=== PATIENT | female | born 1980 | race Caucasian/White ===

== ENCOUNTER 2023-08-01 22:36 | Emergency (ER) | payer MEDICAID, SELFPAY ==
[2023-08-01 22:53] VITALS: BP 93/48; PULSE 85; RESP 12; TEMP 36.9; O2SAT 99
[2023-08-01 23:00] VITALS: BP 92/50; BMI 36.9
--- NOTE | 2023-08-01 23:13 | ED_ITS ---
HPI - Nausea/Vomiting/Diarrhea General Chief complaint: Nausea/Vomiting/Diarrhea Stated complaint: syncope Time Seen by Provider: 08/01/23 22:53 Source: patient Mode of arrival: ambulatory Limitations: no limitations History of Present Illness HPI Narrative: Patient apparently had fish yesterday at the restaurant within 6 hours of the eating fish started having abdominal cramps diarrhea and vomiting after the unable to eat or drink anything was going to the bathroom felt lightheaded and passed out any significant injury. No fever no chills no other family member sick Related Data Previous Rx's Medication Instructions Recorded dicyclomine 20 mg tablet 20 mg PO TID PRN abdominal pain 08/02/23 #20 tabs ondansetron 4 mg disintegrating 4 mg PO Q6-8H PRN nausea and 08/02/23 tablet vomiting #7 tabs Allergies Allergy/AdvReac Type Severity Reaction Status Date / Time No Known Allergies Allergy Verified 08/01/23 23:05 Review of Systems 2 Review of Systems: Yes all other systems are reviewed and are negative [facility] Social History Social History Smoked in Last 30 Days: No Use of substances other than those prescribed or required for medical reasons: No Advance Directives: No Advance Directives Information Provided: No Patient : No Physical Exam 2 Vital Signs: Vital Signs: Last Vital Signs Temp 98.4 F 08/01/23 22:53 Pulse 88 08/02/23 01:03 Resp 18 08/02/23 00:32 BP 96/48 L 08/02/23 01:03 Pulse Ox 99 08/01/23 22:53 O2 Del Method Room Air 08/01/23 22:53 BMI result Body Mass Index 36.9 Appearance: Alert. Oriented X3. No acute distress. Eyes: No pallor or icterus ENT: Pharynx normal. Oral Mucosa moist atraumatic normocephalic Neck: Normal inspection. Neck supple. CVS: Normal heart rate and rhythm. Pulses normal. Respiratory: No respiratory distress. Equal air entry bilateral, Abdomen: Soft and nontender. Bowel sounds are present, no guarding no tenderness no CVA tenderness Skin: Skin warm and dry. Normal skin color. Normal skin turgor. Neuro: Oriented X 3. No motor deficit. Medications Administered Discontinued Medications Generic Name Dose Route Start Last Admin Trade Name Freq PRN Reason Stop Dose Admin Dicyclomine HCl 20 mg 08/01/23 23:17 08/02/23 00:31 Dicyclomine Hcl 10 Mg Capsule PO 08/01/23 23:18 20 mg ONCE ONE Administration Sodium Chloride 1,000 mls @ 999 mls/hr 08/01/23 23:07 08/02/23 00:32 Ns IV 08/02/23 00:07 Infused .Q1H1M ONE Infusion Ondansetron HCl 4 mg 08/01/23 23:19 08/01/23 23:35 Ondansetron Hcl 4 Mg/2 Ml Vial IVPUSH 08/01/23 23:20 4 mg ONCE ONE Administration Medical Decision Making Differential Diagnosis Patient likely with Clostridium perfringens infection or eating fish feeling much better after she received 2 L of IV fluids and IV Zofran ambulated to the bathroom and urinated discharge patient home on symptomatic supportive treatment Admission/Observation Consideration of admission/observation: Escalation of care including admission/observation considered Lab Data MDM Lab Attestation statement: I reviewed the patient's lab results. 08/02/23 00:29 08/02/23 00:07 Labs: Lab Results 08/02/23 08/02/23 Range/Units 00:07 00:29 WBC 12.2 H (4.8-10.8) X10*3/uL RBC 4.47 (4.20-5.50) X10*6/uL Hgb 12.5 (12.0-16.0) g/dl Hct 37.4 (37.0-47.0) % MCV 83.7 (80.0-98.0) fL MCH 28.0 (27.0-33.0) pg MCHC 33.4 (31.0-35.0) g/dl RDW 13.2 (11.0-16.0) % Plt Count 180 (160-400) X10*3/uL MPV 10.7 (9.4-12.3) fL Immature Gran % (Auto) 0.6 H (0.0-0.4) % Neut % (Auto) 90.9 H (45-73) % Lymph % (Auto) 3.1 L (20-40) % [place] % (Auto) 5.2 (2-11) % Eos % (Auto) 0.1 (0-4) % Baso % (Auto) 0.1 (0-2) % Lymph # (Auto) 0.4 L (1.2-4.9) X10*3/uL [place] # (Auto) 0.6 (0.1-1.2) X10*3/uL Eos # (Auto) 0.0 (0.0-0.4) X10*3/uL Baso # (Auto) 0.0 (0.0-0.2) X10*3/uL Abs Immat Gran (auto) 0.07 H (0.00-0.03) X10*3/uL Absolute Neuts (auto) 11.1 H (2.0-8.3) x10*3/uL Absolute Nucleated RBC 0.000 (0.0-0.012) X10*3/uL Nucleated RBC % (auto) 0.0 (0.0-0.2) /100WBC Smear Tech's Comments VERIFIED Sodium 137 (135-145) mmol/L Potassium 3.5 (3.3-5.1) mmol/L Chloride 112 H (96-108) mmol/L Carbon Dioxide 16 L (22-29) mmol/L Anion Gap 13 (12-20) BUN 16 (9-16) mg/dL Creatinine 0.75 (0.5-1.4) mg/dL Estim Creat Clear Calc 109.7 Estimated GFR > 60 Random Glucose 88 (60-115) mg/dL Calcium 7.9 L (8.4-10.2) mg/dL Total Bilirubin 0.5 (0.0-1.0) mg/dL AST 16 (5-31) U/L ALT 18 (0-31) U/L Alkaline Phosphatase 58 (39-117) U/L Total Protein 5.8 L (6.5-8.0) g/dL Albumin 3.3 L (3.5-5.0) g/dL Lipase 12 (8-78) U/L Discharge Plan Discharge Clinical Impression: Clostridium perfringens food poisoning Patient Disposition: Home, Self-Care Instructions: Food Poisoning (ED) Additional Instructions: Drink plenty of fluid Medicine for nausea and abdominal cramps as prescribed Report to the ER if worsening of vomiting/diarrhea or high fever Prescriptions: New dicyclomine 20 mg tablet 20 mg PO TID PRN (Reason: abdominal pain) Qty: 20 0RF ondansetron 4 mg tablet,disintegrating 4 mg PO Q6-8H PRN (Reason: nausea and vomiting) Qty: 7 0RF
[2023-08-01] MEDS: 0.9 % Sodium Chloride 1,000 ML 999 ML IV (23:34)
[2023-08-01] MEDS: ondansetron HCL 4 MG/2 ML VIAL IVPUSH (23:35)
[2023-08-02] MEDS: Dicyclomine HCl 10 MG CAPSULE 20 MG PO (00:31)
[2023-08-02 00:32] VITALS: BP 109/45; PULSE 83; RESP 18
[2023-08-02 00:38] LABS: Alanine Aminotransferase 18 U/L (0-31); Albumin Level 3.3 g/dL (3.5-5.0); Alkaline Phosphatase 58 U/L (39-117); Anion Gap 13 (12-20); Aspartate Amino Transferase 16 U/L (5-31); Bilirubin Total 0.5 mg/dL (0.0-1.0); Blood Urea Nitrogen 16 mg/dL (9-16); Calcium 7.9 mg/dL (8.4-10.2); Carbon Dioxide 16 mmol/L (22-29); Chloride 112 mmol/L (96-108); Creatinine Clr Calc Pharmacy 109.7; Estimated Glomerular Filt Rate > 60; Glucose Random 88 mg/dL (60-115); Lipase 12 U/L (8-78); Potassium 3.5 mmol/L (3.3-5.1); Sodium 137 mmol/L (135-145); Total Protein 5.8 g/dL (6.5-8.0)
[2023-08-02 00:40] LABS: Basophils Percent Auto 0.1 % (0-2); Eosinophils Percent Auto 0.1 % (0-4); Hematocrit 37.4 % (37.0-47.0); Hemoglobin 12.5 g/dl (12.0-16.0); Imm Gran Abs Auto 0.07 X10*3/uL (0.00-0.03); Imm Gran Pct Auto 0.6 % (0.0-0.4); Lymphocytes Absolute Auto 0.4 X10*3/uL (1.2-4.9); Lymphocytes Percent Auto 3.1 % (20-40); MANUAL DIFF FLAG SCAN; Mean Corpuscular HGB Conc 33.4 g/dl (31.0-35.0); Mean Corpuscular Volume 83.7 fL (80.0-98.0); Mean Platelet Volume 10.7 fL (9.4-12.3); Monocytes Absolute Auto 0.6 X10*3/uL (0.1-1.2); Monocytes Percent Auto 5.2 % (2-11); Neutrophils Absolute Auto 11.1 x10*3/uL (2.0-8.3); Neutrophils Percent Auto 90.9 % (45-73); Platelet Count 180 X10*3/uL (160-400); Red Blood Count 4.47 X10*6/uL (4.20-5.50); Red Cell Distribution Width 13.2 % (11.0-16.0); SCAN SMEAR FLAG 1; White Blood Count 12.2 X10*3/uL (4.8-10.8)
[2023-08-02 00:59] VITALS: BP 97/51; PULSE 66
[2023-08-02 01:00] VITALS: BP 100/57; PULSE 80
[2023-08-02 01:01] LABS: SLIDE REVIEW VERIFIED
[2023-08-02 01:03] VITALS: BP 96/48; PULSE 88
[2023-08-02 01:51] VITALS: BP 96/57; PULSE 77; RESP 16; TEMP 36.6; O2SAT 96
== END 2023-08-02 01:52 | disposition home or self-care (01) ==
PROVIDERS: Emergency Provider Internal Medicine; PCP Physician Assistant Medical
DX: A05 Other bacterial foodborne intoxications, not elsewhere classified (principal); R19.7 Diarrhea, unspecified; R10.9 Unspecified abdominal pain; R11.10 Vomiting, unspecified; R55 Syncope and collapse
CPT/HCPCS: 36415; 80053; 83690; 85025; 96361; 96374; 99284; J2405

== ENCOUNTER 2024-04-24 09:25 | Emergency (ER) | payer MEDICAID, SELFPAY ==
--- NOTE | ~2024-04-24 | CT_ITS ---
EXAMINATION: CT ABDOMEN AND PELVIS WITH CONTRAST CLINICAL INFORMATION: Abdominal pain COMPARISON: None available. TECHNIQUE: Multidetector volumetric images were obtained from the superior aspect of the liver through the pubic symphysis following administration 85 mL of Omnipaque 350 intravenous contrast. Sagittal and coronal reformatted images were obtained on the technologist's workstation. Oral contrast: No This CT examination was performed using dose optimization techniques as appropriate, variously including the following: *Automated exposure control *Adjustment of mA and/or kV according to patient size (this includes techniques or standardized protocols for targeted exams where dose is matched to indication/reason for exam; i.e. extremities or head) *Use of iterative reconstruction technique DLP: 642 mGy-cm FINDINGS: LUNG BASES: The visualized lung bases are unremarkable. LIVER, GALLBLADDER, AND BILIARY TREE: The liver is normal in size, shape, and attenuation. No focal hepatic lesion or biliary ductal dilatation is present. The gallbladder is unremarkable with no evidence of radiopaque gallstones, gallbladder wall thickening, or obvious pericholecystic inflammatory changes. PANCREAS: Unremarkable. SPLEEN: Unremarkable. ADRENAL GLANDS: Unremarkable. KIDNEYS AND URETERS: The kidneys are normal in size, shape, and attenuation. No hydronephrosis, hydroureter, or calculi seen. No perinephric stranding. BLADDER: Unremarkable. GASTROINTESTINAL TRACT: The stomach and small bowel are unremarkable. 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 ABDOMINAL WALL: No significant hernia is appreciated. LYMPH NODES: Multiple mesenteric lymph nodes. VASCULAR: Unremarkable. PELVIC VISCERA: Unremarkable. OSSEOUS STRUCTURES: Unremarkable. 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 Findings were discussed with FIDENCIO Vega at 2:35pm on 04/24/24. Electronically signed by: Saundra Adame MD 04/24/2024 02:38 PM [facility]
--- NOTE | 2024-04-24 09:26 | ECG_ITS ---
Test Reason : chest pain Blood Pressure : / mmHG Vent. Rate : 074 BPM Atrial Rate : 074 BPM P-R Int : 160 ms QRS Dur : 082 ms QT Int : 378 ms P-R-T Axes : 059 048 043 degrees QTc Int : 419 ms Normal sinus rhythm Normal ECG No previous ECGs available Referred By: Generic ED Physician Electronically Signed By:Tano Mortensen
[2024-04-24 09:36] VITALS: BP 141/80; PULSE 83; RESP 18; TEMP 36.6; O2SAT 98; BMI 34.9
[2024-04-24 10:03] LABS: MANUAL DIFF FLAG NO
[2024-04-24 10:05] LABS: Basophils Percent Auto 0.3 % (0-2); Eosinophils Absolute Auto 0.2 X10*3/uL (0.0-0.4); Eosinophils Percent Auto 1.6 % (0-4); Hematocrit 43.1 % (37.0-47.0); Hemoglobin 14.6 g/dl (12.0-16.0); Imm Gran Abs Auto 0.04 X10*3/uL (0.00-0.03); Imm Gran Pct Auto 0.3 % (0.0-0.4); Lymphocytes Absolute Auto 1.2 X10*3/uL (1.2-4.9); Mean Corpuscular HGB Conc 33.9 g/dl (31.0-35.0); Mean Corpuscular Hemoglobin 27.2 pg (27.0-33.0); Mean Corpuscular Volume 80.3 fL (80.0-98.0); Monocytes Absolute Auto 0.8 X10*3/uL (0.1-1.2); Monocytes Percent Auto 6.6 % (2-11); Neutrophils Absolute Auto 9.9 x10*3/uL (2.0-8.3); Neutrophils Percent Auto 81.2 % (45-73); Platelet Count 269 X10*3/uL (160-400); Red Blood Count 5.37 X10*6/uL (4.20-5.50); Red Cell Distribution Width 13.4 % (11.0-16.0); White Blood Count 12.2 X10*3/uL (4.8-10.8)
[2024-04-24 10:07] LABS: Appearance Urine Clear; Color Urine Yellow; Glucose Urine UA Negative (Negative); Leukocyte Esterase Urine Moderate (2+) (Negative); Nitrite Urine Negative (Negative); UMIC TRIGGER UACC YES; Urine Blood Negative (Negative); Urine Ketones Negative (Negative); Urine Protein Negative (Neg-Trace)
[2024-04-24 10:09] LABS: UPreg QC Valid YES; Urine Pregnancy NEGATIVE (NEGATIVE)
[2024-04-24 10:15] LABS: Bacteria Urine None Seen (None Seen); Hyaline Casts Urine 0-2 /LPF (0-2); RBC Urine 0-2 /HPF (0-2); UACC Culture Trigger YES; WBC Urine 0-5 /HPF (0-5)
[2024-04-24 10:30] LABS: Alanine Aminotransferase 16 U/L (0-31); Albumin Level 4.3 g/dL (3.5-5.0); Alkaline Phosphatase 59 U/L (39-117); Anion Gap 14 (12-20); Aspartate Amino Transferase 16 U/L (5-31); Bilirubin Total 0.5 mg/dL (0.0-1.0); Blood Urea Nitrogen 11 mg/dL (9-16); Calcium 9.3 mg/dL (8.4-10.2); Carbon Dioxide 23 mmol/L (22-29); Chloride 105 mmol/L (96-108); Creatinine Clr Calc Pharmacy 113.7; Estimated Glomerular Filt Rate > 60; Glucose Random 98 mg/dL (60-115); Potassium 4.2 mmol/L (3.3-5.1); Sodium 138 mmol/L (135-145); Total Protein 7.3 g/dL (6.5-8.0)
[2024-04-24 11:52] VITALS: BP 126/81; PULSE 66; RESP 18; TEMP 36.6; O2SAT 100
[2024-04-24] MEDS: iohexoL 350 MG/ML 75 ML INFUS..BTL 85 ML IV (13:08)
--- NOTE | 2024-04-24 14:03 | ED.ABDPAIN ---
HPI - Abdominal Pain General Chief Complaint: Abdominal Pain Stated Complaint: abd and chest pain Time Seen by Provider: 04/24/24 11:41 Source: patient Mode of arrival: ambulatory Limitations: no limitations History of Present Illness ED Provider: FIDENCIO Champion HPI narrative: 43 year old female hx of obesity, lactose intolerance presents w/ abd pain, nausea x months acutely worsening since yesterday after eating a croissant. Patient reports she has been taking omeprazole with little to no relief. She rates pain as severe, intermittent and is becoming more constant than usual. Nothing seems to make the pain better. She states that they have been testing her for celiac disease however does not have results yet. She denies diarrhea, fevers, chills, blood in stool or urine, headache, vision changes, dizziness, weakness, chest pain and shortness of breath. Related Data Previous Rx's ?Medication ?Instructions ?Recorded dicyclomine 20 mg tablet 20 mg PO TID PRN abdominal pain 08/02/23 #20 tabs ondansetron 4 mg disintegrating 4 mg PO Q6-8H PRN nausea and 08/02/23 tablet vomiting #7 tabs Allergies Allergy/AdvReac Type Severity Reaction Status Date / Time No Known Allergies Allergy Verified 04/24/24 09:38 Review of Systems Review of Systems Yes all other systems are reviewed and are negative PMFSH Past Medical History Attestation statement: The following information was validated with the patient. Source: old records reviewed and nursing notes reviewed Social History Social History Alcohol intake: current Smoked in Last 30 Days: No Use of substances other than those prescribed or required for medical reasons: Yes Substance Use Type: Marijuana Substance Use Frequency: Occasionally Last Used Substance: Days (ago) Advance Directives: No Advance Directives Information Provided: No Do you have a plan to hurt others: No Plan Physical Exam ED Vital Signs: Vital Signs - 24 hr 04/24/24 09:36 04/24/24 11:52 04/24/24 15:09 Temperature 98 F 98 F 97.3 F Pulse Rate 83 66 81 Respiratory Rate 18 18 16 Blood Pressure 141/80 H 126/81 130/78 Pulse Oximetry 98 100 100 Oxygen Delivery Method Room Air Room Air Room Air 04/24/24 15:41 Temperature 98.8 F Pulse Rate 81 Respiratory Rate 16 Blood Pressure 120/78 Pulse Oximetry 100 Oxygen Delivery Method Room Air BMI result Body Mass Index 34.9 vss Appearance: Alert.? Oriented X3.? No acute distress.? Head: Normocephalic, atraumatic, no step-offs or deformities Eyes: Pupils equal, round and reactive to light.? Neck: Normal inspection.? Neck supple.? CVS: Normal heart rate and rhythm.? Pulses normal.? Respiratory: No respiratory distress.? Breath sounds normal.? Abdomen: Soft and nontender.? Skin: Skin warm and dry.? Normal skin color.? Normal skin turgor.? Extremities: No lower extremity edema.? No calf ttp. 5/5 strength to bilateral upper and lower extremities Neuro: Oriented X 3.? No motor deficit.? No sensory deficit. CN 2-12 intact Course Reevaluation(s) Reevaluation #1: CBC with leukocytosis of the head appears to be around baseline with neutrophil predominance this could be reactive secondary to nausea and vomiting. Chemistry with no acute findings needing intervention. UA without infection. Urine negative. Patient is noted to have a colonic on colonic intussusception likely due to a lipoma I got this critical result from [facility]. Will reach out to surgery at this time Time: 14:35 Reevaluation #2: I did discuss this case with surgery Dr. Ortiz that tells me that this is very unusual but can be reduced with either colonoscopy or barium enema colonoscopy maybe a better idea as it can b look for underlying cancer as a lead point. Does not think a barium enema can be done on a weekend. Will reach out to GI at this time Dr. Rojas Time: 15:20 Reevaluation #3: I did discuss this with GI who reports that we do not move these as they or submucosal this would likely have to go to a tertiary center I did call [facility] waiting for call back. Time: 15:45 Additional Reevaluation(s): 1552 I did discuss this case with General surgery over at [facility] who recommend reaching out to a facility that has Colorectal surgeons, will reach out to [facility] at this time. 1553 [facility] called back they do have a colorectal surgeon on-call today they will have them call me at this time. Dr. Mercedes colorectal surgeon, recommends a R Colectomy Patient accepted at [facility] Emergency Department Dr. Acosta patient is okay with being transferred over state lines. Medical Decision Making Medical Decision Making [facility] Narrative: 1404 43-year-old female presents with abdominal pain epigastric region for the past few months, she reports this has been acutely worsening since yesterday after eating a croisant. This morning with severe pain she had chest discomfort Physical exam diffuse abdominal tenderness worse in the epigastric region. History and physical exam concerning for IBS versus IBD versus viral illness versus celiac disease versus lactose intolerance. Unlikely acute abdomen, appendicitis, cholecystitis, diverticulitis, pancreatitis, obstruction. Will rule out metabolic derangements in urinary tract infection although less likely Plan labs, imaging, urine Differential Diagnosis Differential Diagnoses: The differential diagnosis associated with the presentation includes (History and physical exam concerning for IBS versus IBD versus viral illness versus celiac disease versus lactose intolerance. Unlikely acute abdomen, appendicitis, cholecystitis, diverticulitis, pancreatitis, obstruction. Will rule out metabolic derangements in urinary tract infection although le) Admission/Observation Consideration of admission/observation: Escalation of care including admission/observation considered Lab Data [facility] Lab Attestation statement: I reviewed the patient's lab results. 04/24/24 09:55 04/24/24 09:55 Labs: Lab Results 04/24/24 04/24/24 Range/Units 09:54 09:55 WBC 12.2 H (4.8-10.8) X10*3/uL RBC 5.37 D (4.20-5.50) X10*6/uL Hgb 14.6 (12.0-16.0) g/dl Hct 43.1 (37.0-47.0) % MCV 80.3 (80.0-98.0) fL MCH 27.2 (27.0-33.0) pg MCHC 33.9 (31.0-35.0) g/dl RDW 13.4 (11.0-16.0) % Plt Count 269 D (160-400) X10*3/uL MPV 11.0 (9.4-12.3) fL Immature Gran % (Auto) 0.3 (0.0-0.4) % Neut % (Auto) 81.2 H (45-73) % Lymph % (Auto) 10.0 L (20-40) % [place] % (Auto) 6.6 (2-11) % Eos % (Auto) 1.6 (0-4) % Baso % (Auto) 0.3 (0-2) % Lymph # (Auto) 1.2 (1.2-4.9) X10*3/uL [place] # (Auto) 0.8 (0.1-1.2) X10*3/uL Eos # (Auto) 0.2 (0.0-0.4) X10*3/uL Baso # (Auto) 0.0 (0.0-0.2) X10*3/uL Abs Immat Gran (auto) 0.04 H (0.00-0.03) X10*3/uL Absolute Neuts (auto) 9.9 H (2.0-8.3) x10*3/uL Absolute Nucleated RBC 0.000 (0.0-0.012) X10*3/uL Nucleated RBC % (auto) 0.0 (0.0-0.2) /100WBC Sodium 138 (135-145) mmol/L Potassium 4.2 (3.3-5.1) mmol/L Chloride 105 (96-108) mmol/L Carbon Dioxide 23 (22-29) mmol/L Anion Gap 14 (12-20) BUN 11 (9-16) mg/dL Creatinine 0.72 (0.5-1.4) mg/dL Estim Creat Clear Calc 113.7 Estimated GFR > 60 Random Glucose 98 (60-115) mg/dL Calcium 9.3 D (8.4-10.2) mg/dL Total Bilirubin 0.5 (0.0-1.0) mg/dL AST 16 (5-31) U/L ALT 16 (0-31) U/L Alkaline Phosphatase 59 (39-117) U/L Total Protein 7.3 (6.5-8.0) g/dL Albumin 4.3 (3.5-5.0) g/dL Urine Color Yellow Urine Appearance Clear Urine pH 7.0 (5.0-9.0) Ur Specific [place] 1.010 (1.005-1.025) Urine Protein Negative (Neg-Trace) mg/dL Urine Glucose (UA) Negative (Negative) mg/dL Urine Ketones Negative (Negative) mg/dL Urine Blood Negative (Negative) Urine Nitrite Negative (Negative) Ur Leukocyte Esterase Moderate (2+) H (Negative) Urine RBC 0-2 (0-2) /HPF Urine WBC 0-5 (0-5) /HPF Ur Squamous Epith Cells 3-5 (0-2) /HPF Urine Bacteria None Seen (None Seen) Hyaline Casts 0-2 (0-2) /LPF Urine Test NEGATIVE (NEGATIVE) Independent Interpretation I performed an independent interpretation of an: CT Scan Radiology Impression Discussion of test interpretation with radiology: I have reviewed the radiologist's reading. External Record Review External record reviewed: Office record, Outpatient record and Prior outpatient labs Chronic Conditions Patient?s care impacted by: Other (see hpi ) Medications Administered Discontinued Medications Generic Name Dose Route Start Last Admin Trade Name Freq PRN Reason Stop Dose Admin Iohexol 85 ml 04/24/24 13:07 04/24/24 13:08 Iohexol 350 Mg/Ml 75 Ml Infus..Btl IV 04/24/24 13:08 85 ml ONCE ONE Administration Ketorolac Tromethamine 30 mg 04/24/24 14:03 04/24/24 14:06 Ketorolac Tromethamine 15 Mg/Ml Vial IVPUSH 04/24/24 14:04 30 mg ONCE ONE Administration Critical Care Time Critical Care Time Critical Care Time: Yes Total Critical Care Time: 35 Attestation: I attest to this time spent taking care of the patient, obtaining history, physical, reviewing labs, imaging, speaking to my attending, speaking to specialist. Discharge Plan Discharge Clinical Impression: Intussusception, Abdominal pain Patient Disposition: [facility] Transfer Details: [facility] Dr. Acosta Prescriptions: No Action dicyclomine 20 mg tablet 20 mg PO TID PRN (Reason: abdominal pain) Qty: 20 0RF ondansetron 4 mg tablet,disintegrating 4 mg PO Q6-8H PRN (Reason: nausea and vomiting) Qty: 7 0RF Print Language: [place]
[2024-04-24] MEDS: Ketorolac Tromethamine 15 MG/ML VIAL 30 MG IVPUSH (14:06)
[2024-04-24 15:09] VITALS: BP 130/78; PULSE 81; RESP 16; TEMP 36.3; O2SAT 100
[2024-04-24 15:41] VITALS: BP 120/78; PULSE 81; RESP 16; TEMP 37.1; O2SAT 100
--- NOTE | 2024-04-24 16:18 | PC.NURSE ---
pt speaking w/ provider in regards to plan of care/being transferred to [facility] at this time. pt agreeable to plan of care. ETA transfer unknown at this time. plan of care ongoing.
--- NOTE | 2024-04-24 17:30 | PC.NURSE ---
report given to EZEQUIEL roth at this time. attempted to call jodi to give report at this time - no answer. will reattempt shortly.
--- NOTE | 2024-04-24 18:07 | PC.NURSE ---
reattempted to call jodi and give report. no answer at this time.
[2024-04-24 18:08] VITALS: BP 120/78; PULSE 81; RESP 16; TEMP 37.1; O2SAT 100
--- OUTSIDE RECORDS SUMMARY | 2024-04-28 11:43 | XMS_ITS ---
Author Name [facility] Organization Unknown Results Test Name/Text Value Interpretation Date Range Source Hct VFr Bld Auto 40.1% Normal 35 - 47 [facility] Hgb Bld-mCnc 13.1g/dL Normal 11.7 - 15.7 [facility] WBC num/area UrnS HPF 25perhpf Above high normal [id number] 0 - 4 [facility] Squamous num/area UrnS HPF 18PERHPF Normal [id number] [facility] RBC num/area UrnS HPF 8perhpf Above high normal [id number] 0 - 4 [facility] Ketones Ur Strip-mCnc Abnormal [id number] - [facility] Prot Ur Strip-mCnc Abnormal 762563150844 - [facility] Glucose Ur Strip-mCnc 0mg/dL Normal [id number] 0 - 99 [facility] Nitrite Ur Ql Strip Normal [id number] - [facility] Leukocyte esterase Ur Ql Strip Abnormal 758512090717 - [facility] Bilirub Ur Strip-mCnc Normal [id number] - [facility] Sp Gr Ur Strip 1.031 Above high normal [id number] 1 .003 - 1.03 [facility] pH Ur Strip 5 Normal [id number] 5 - 8 [facility] Color Ur Normal [id number] [facility] Clarity Ur Normal [id number] [facility] Hgb Ur Ql Strip Abnormal [id number] - H [facility]CT INR PPP 1 Normal [id number] [facility] Prothrombin time 12seconds Normal [id number] 10 - 13.5 H[facility] aPTT PPP 31seconds Normal [id number] 25 - 36 [facility] Anticoagulant SUBCUTANEOUS UNFRACTIONATED HEPARIN Normal [id number] [facility] Anticoagulant SUB Q UNFRACTIONATED HEPARIN Normal [id number] H[facility]CT Phosphate SerPl-mCnc 3.2mg/dL Normal [id number] 2.7 - 4.5 [facility]CT Magnesium SerPl-mCnc 2.3mg/dL Normal 1.6 - 2.7 [facility]CT Chloride SerPl-sCnc 105mmol/L Normal 98 - 107 [facility]CT Glucose SerPl-mCnc 76mg/dL Normal 65 - 99 H[facility]CT GFR/BSA.pred SerPlBld CEF-SOC-AcVFve 90 Normal [id number] 59 - H[facility]CT Creat SerPl-mCnc 0.7mg/dL Normal 0.4 - 1.1 [facility]CT BUN/Creat SerPl 16Ratio Normal 10 - 25 H HCCT Anion Gap Bld-sCnc 17 Normal 7 - 17 [facility]CT Calcium SerPl-mCnc 8.9mg/dL Normal 8.7 - 10 .5 H[facility]CT CO2 SerPl-sCnc 17mmol/L Below low normal 22 - 33 [facility]CT BUN SerPl-mCnc 11mg/dL Normal 8 - 21 HH CCT Sodium SerPl-sCnc 139mmol/L Normal 136 - 145 H[facility]CT Potassium SerPl-sCnc 3.9mmol/L Normal 3.4 - 5.3 H[facility]CT MCH RBC Qn Auto 26.6pg Normal [id number] 26 - 34 H HCCT PMV Bld Auto 11.6fL Normal [id number] 7.5 - 12.[address] RDW RBC Auto-Rto 13.2% Normal 11.5 - 14.5 [facility]CT Hct VFr Bld Auto 44.9% Normal [id number] 35 - 47 [facility] Platelet num Bld Auto 231Thou/uL Normal [id number] 150 - 450 H[facility]CT MCHC RBC Auto-mCnc 32.5g/dL Normal 30 - 36 [facility]CT MCV RBC Auto 82fL Normal [id number] 80 - 100 HHCC T WBC num Bld Auto 8.4Thou/uL Normal [id number] 4 - 11 [facility]CT RBC num Bld Auto 5.49Mil/uL Above high normal 4 - 5.4 H[facility]CT Hgb Bld-mCnc 14.6g/dL Normal 11.7 - 15.7 H[facility]CT WBC num/area UrnS HPF 14perhpf Above high normal [id number] 0 - 4 [facility]CT Squamous num/area UrnS HPF 21PERHPF Normal [id number] H[facility]CT RBC num/area UrnS HPF 3perhpf Normal [id number] 0 - 4 H[facility]CT Ketones Ur Strip-mCnc Abnormal [id number] - HHCCT Prot Ur Strip-mCnc Abnormal [id number] - [facility]CT Glucose Ur Strip-mCnc 0mg/dL Normal [id number] 0 - 99 H[facility]CT Nitrite Ur Ql Strip Normal [id number] - H[facility]CT Leukocyte esterase Ur Ql Strip Abnormal [id number] - HHCCT Bilirub Ur Strip-mCnc Normal [id number] - HHCCT Sp Gr Ur Strip 1.05 Above high normal [id number] 1 .003 - 1.03 H[facility]CT pH Ur Strip 5 Normal [id number] 5 - 8 H[facility]CT Color Ur Normal [id number] H[facility]CT Clarity Ur Normal [id number] HHCCT Hgb Ur Ql Strip Normal [id number] - H HCCT Lactate SerPl-sCnc 0.9mmol/L Normal [id number] 0.5 - 1. 9 H[facility]CT Lipase SerPl-cCnc 27U/L Normal [id number] 13 - 60 H[facility]CT Globulin Ser Calc-mCnc 2.9g/dL Normal [id number] 1.5 - 3.9 H[facility]CT ALT SerPl-cCnc 15U/L Normal [id number] 10 - 50 HH CCT AST SerPl-cCnc 14U/L Normal [id number] 10 - 50 HH CCT GFR/BSA.pred SerPlBld PRX-IBB-TnTKep 90 Normal [id number] 59 - HHCCT Albumin SerPl-mCnc 4.2g/dL Normal [id number] 3.5 - 5 H[facility]CT Albumin/Glob SerPl 1.4Ratio Normal [id number] 1 - 3 [facility]CT Creat SerPl-mCnc 0.7mg/dL Normal [id number] 0.4 - 1.1 HHCCT Bilirub SerPl-mCnc 0.5mg/dL Normal [id number] 0.2 - 1 H[facility]CT Anion Gap Bld-sCnc 16 Normal [id number] 7 - 17 H[facility]CT Sodium SerPl-sCnc 137mmol/L Normal [id number] 136 - 145 H[facility]CT Potassium SerPl-sCnc 3.7mmol/L Normal [id number] 3.4 - 5.3 HHCCT Chloride SerPl-sCnc 103mmol/L Normal 98 - 107 H[facility]CT Glucose SerPl-mCnc 78mg/dL Normal [id number] 65 - 99 HHCCT Prot SerPl-mCnc 7.1g/dL Normal [id number] 6.3 - 8.3 H HCCT BUN/Creat SerPl 14Ratio Normal 10 - 25 H HCCT Calcium SerPl-mCnc 9mg/dL Normal [id number] 8.7 - 10 .5 HHCCT CO2 SerPl-sCnc 18mmol/L Below low normal 22 - 33 H[facility]CT BUN SerPl-mCnc 10mg/dL Normal 8 - 21 HH CCT ALP SerPl-cCnc 65U/L Normal [id number] 32 - 122 HH CCT Imm Granulocytes/leuk NFr Bld Auto 0.3% Normal [id number] HHCCT Lymphocytes/leuk NFr Bld Auto 18.5% Normal [id number] HHCCT PMV Bld Auto 11.2fL Normal [id number] 7.5 - 12.[address] Monocytes num Bld Auto 0.8Thou/uL Normal [id number] 0.2 - 1.5 HHCCT Hct VFr Bld Auto 43.1% Normal [id number] 35 - 47 H[facility]CT Neutrophils num Bld Auto 6.92Thou/uL Normal [id number] 2 - 7.5 HHCCT Neutrophils/leuk NFr Bld Auto 70.5% Normal [id number] HHCCT Basophils/leuk NFr Bld Auto 0.4% Normal [id number] HHCCT Basophils num Bld Auto 0.04Thou/uL Normal [id number] 0 - 0.2 HHCCT Monocytes/leuk NFr Bld Auto 8.2% Normal HHCCT Eosinophil num Bld Auto 0.21Thou/uL Normal 0 - 0.7 HHCCT MCH RBC Qn Auto 26.4pg Normal 26 - 34 H HCCT Eosinophil/leuk NFr Bld Auto 2.1% Normal HHCCT Imm Granulocytes num Bld Auto 0.03Thou/uL Normal 0 - 0.1 HHCCT RDW RBC Auto-Rto 13.2% Normal 11.5 - 14.5 HHCCT Platelet num Bld Auto 251Thou/uL Normal 150 - 450 HHCCT MCHC RBC Auto-mCnc 32.7g/dL Normal 30 - 36 HHCCT MCV RBC Auto 81fL Normal 80 - 100 HHCC T WBC num Bld Auto 9.8Thou/uL Normal 4 - 11 HHCCT RBC num Bld Auto 5.34Mil/uL Normal 4 - 5.4 HHCCT Hgb Bld-mCnc 14.1g/dL Normal 11.7 - 15.7 HHCCT Lymphocytes num Bld Auto 1.81Thou/uL Normal 1.5 - 4.5 HHCCT
== END 2024-04-24 18:08 | disposition short-term general hospital (02) ==
PROVIDERS: Emergency Provider Emergency Medicine Emergency Medical Services; PCP Physician Assistant Medical
DX: K56.1 Intussusception (principal); R10.9 Unspecified abdominal pain; Z79.899 Other long term (current) drug therapy
CPT/HCPCS: 36415; 74177; 80053; 81001; 81025; 85025; 87086; 93005; 96374; 99285; J1885; Q9967

== ENCOUNTER → 2024-04-24 09:26 | Outpatient (BNV) | payer MEDICAID, SELFPAY | PROVIDERS: Emergency Provider Emergency Medicine Emergency Medical Services; PCP Physician Assistant Medical; Visit Provider Internal Medicine Cardiovascular Disease | DX: R07.9 Chest pain, unspecified (principal) | CPT/HCPCS: 93010 ==

== ENCOUNTER 2024-05-05 14:18 | Outpatient (REF) | payer MEDICAID, SELFPAY | END 2024-05-05 14:19 | disposition home or self-care (01) | LOC: HO.MAMMO 14:18 | PROVIDERS: PCP Physician Assistant Medical; Visit Provider Physician Assistant Medical | DX: Z12.31 Encounter for screening mammogram for malignant neoplasm of breast (principal) | CPT/HCPCS: 77063; 77067 ==

== ENCOUNTER → 2024-05-05 14:45 | Outpatient (BNV) | payer MEDICAID, SELFPAY | PROVIDERS: PCP Physician Assistant Medical; Visit Provider Internal Medicine | DX: Z12.31 Encounter for screening mammogram for malignant neoplasm of breast (principal) | CPT/HCPCS: 77063; 77067 ==

== ENCOUNTER 2024-09-12 20:39 | Emergency (ER) | payer MEDICAID, SELFPAY ==
[2024-09-12 20:40] VITALS: BP 146/87; PULSE 87; RESP 20; TEMP 36.8; O2SAT 100; BMI 33.3
--- NOTE | 2024-09-12 20:44 | ED_ITS ---
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 no other tick bite no history of Lyme disease Related Data Previous Rx's ?Medication ?Instructions ?Recorded dicyclomine 20 mg tablet 20 mg PO TID PRN abdominal pain 08/02/23 #20 tabs ondansetron 4 mg disintegrating 4 mg PO Q6-8H PRN nausea and 08/02/23 tablet vomiting #7 tabs Allergies Allergy/AdvReac Type Severity Reaction Status Date / Time No Known Allergies Allergy Verified 09/12/24 20:42 Review of Systems Review of Systems: Yes all other systems are reviewed and are negative [facility] Social History Social History Alcohol intake: current Substance Use Type: Marijuana Advance Directives: No Advance Directives Information Provided: No Physical Exam ED Vital Signs: Vital Signs - 24 hr 09/12/24 20:40 09/12/24 22:03 09/12/24 22:06 Temperature 98.3 F 98.7 F 98.7 F Pulse Rate 87 69 69 Respiratory Rate 20 16 16 Blood Pressure 146/87 H 134/79 134/79 Pulse Oximetry 100 99 99 Oxygen Delivery Method Room Air Room Air Room Air BMI result Body Mass Index 33.3 Appearance: Alert. Oriented X3. No acute distress. Eyes: no pallor or icterus ENT: Pharynx normal Oral Mucosa moist tympanic membrane intact no erythema, live Tick present in left EAC Neck: Normal inspection. Neck supple. CVS: Normal heart rate and rhythm. Pulses normal. Respiratory: No respiratory distress. Equal air entry bilateral, no wheezing/rales/rhonchi Abd: soft, not tender Skin: Skin warm and dry. Normal skin color. Normal skin turgor. Course Course Course Narrative: RME: 44 yold female presents to the ED for tick in left ear since yesterday. patient denies any fever or chills. Patient has special camera she put in ear which shows tick in ear that;s deep in ear. Evaluation with otoscope does show not obvious tick, but patient has picture of tick deep imbeded in inner ear she took before coming to the ED. Patient to be evaluated in the ED. Medications Administered Discontinued Medications Generic Name Dose Route Start Last Admin Trade Name Freq PRN Reason Stop Dose Admin Doxycycline Monohydrate 200 mg 09/12/24 21:57 09/12/24 22:03 Doxycycline Monohydrate 100 Mg Capsule PO 09/12/24 21:58 200 mg ONCE ONE Administration Medical Decision Making Medical Decision Making MDM Narrative: Intact tick was removed using forceps patient was given prophylaxis doxycycline although the tick was not engorged Discharge Plan Discharge Clinical Impression: Tick bite Patient Disposition: Home, Self-Care Instructions: Tick Bite (ED) Additional Instructions: You have a tick bite which is unlikely to cause Lyme disease You have been given prophylaxis doxycycline Prescriptions: No Action dicyclomine 20 mg tablet 20 mg PO TID PRN (Reason: abdominal pain) Qty: 20 0RF ondansetron 4 mg tablet,disintegrating 4 mg PO Q6-8H PRN (Reason: nausea and vomiting) Qty: 7 0RF Interventions: ED Discharge Assessment Last Done: 09/12/24 22:06 Discharge Date/Time: 09/12/24 22:07 Print Language: Ukrainian
--- OUTSIDE RECORDS SUMMARY | 2024-09-12 21:32 | XMS_ITS | Data Portability ---
Author Organization [facility] [address] Address [address] [place] [address] Assessment No assessment recorded. Plan of Treatment Reminders Order Date Submit Date Provider Last Modified By Organization Details Last Modified Time Details Appointments None recorded. Lab urinalysis, dipstick 2023 024 [email or web address] [id number]_[facility], [address] [place], [address], 17:40:00 test, urine 2023 [email or web address] _[facility], [address] [place], [address], 4 17:40:00 Referral None recorded. Procedures None recorded. Surgeries None recorded. Imaging None recorded. Medication Orders omeprazole 40 mg capsule,del ayed release 2023 024 [facility] #[id number], [address] [facility] [place], [address], 17:40:02 Patient TargetsNo targets recorded. Patient InstructionsNo instructions recorded. Reason for Referral None Reported. Results Created Date Observation Date Name Description Value Unit Range Abnormal Flag Note LastModifiedBy Organization Detail LastModifiedTime 04/03/2004/03/2024 pregn karla test, urine Unknown Analyte negati ve Not Available _[address] [place], [address], 04/03/2024 17:25:39 04/03/2004/03/2024 urina lysis , dipst ick Unknown Analyte Dark Yellow Not Available [facility], [place], [address], 04/03/2024 17:24:53 04/03/2004/03/2024 urina lysis , dipst ick Unknown Analyte Slight ly Cloudy Not Available sheba martinez [address] [place], [address], 04/03/2024 17:24:53 04/03/2004/03/2024 urina lysis , dipst ick Unknown Analyte Negati ve Not Available sheba martinez [address] [place], [address], 04/03/2024 17:24:53 04/03/2004/03/2024 urina lysis , dipst ick Unknown Analyte Small Not Available _ nicole [address] [place], [address], 04/03/2024 17:24:53 04/03/2004/03/2024 urina lysis , dipst ick Unknown Analyte Negati ve Not Available sheba martinez [address] [place], [address], 04/03/2024 17:24:53 04/03/2004/03/2024 urina lysis , dipst ick Unknown Analyte 1.030 Not Available _ nicole [address] [place], [address], 04/03/2024 17:24:53 04/03/20 24 04/03/2024 urina lysis , dipst ick Unknown Analyte Large Not Available _ nicole [address] [place], [address], 04/03/2024 17:24:53 04/03/20 04/03/2024 urina lysis , dipst ick Unknown Analyte 6.5 Not Available 2099Erlinda_ nicole [address] [place], [address], 04/03/2024 17:24:53 04/03/20 24 04/03/2024 urina lysis , dipst ick Unknown Analyte Trace Not Available _ nicole [address] [place], [address], 04/03/2024 17:24:53 04/03/20 24 04/03/2024 urina lysis , dipst ick Unknown Analyte 1.0 E.U./d L Not Available mickie martinez [address] [place], [address], 04/03/2024 17:24:53 04/03/20 24 04/03/2024 urina lysis , dipst ick Unknown Analyte Negati ve Not Available mickie martinez [address], [address], 04/03/2024 17:24:53 04/03/2004/03/2024 urina lysis , dipst ick Unknown Analyte Negati ve Not Available sheba martinez [address], [address], 04/03/2024 17:24:53 Result Notes None recorded. Problems Name Problem SNOMED Code Status Onset Date Resolution Date Notes Provider Name and Address Organization Details Recorded Time Attention deficit hyperactivity disorder 253570962 Active Khadijah [place] null, [place] - [facility] 17:17:40 Asthma 330518289 Active Khadijah [place] null, [place] - [facility] 17:17:47 Seasonal allergy 347195056 Active Khadijah [place] null, [place] - [facility] 17:24:03 Problem Notes None recorded. Medical Equipment None Reported. Allergies Allergen ID Allergen Name Allergen Category Reaction Reaction Severity Criticality Documentation Date Start Date Code Code System Note Provider Name and Address Organization Details Recorded Time 9519165 Canis lupus familiari s extract environme nt Not available Not available Not available 04/03/2024 75836 4 RxNorm Khadijah [place] null, [place] - [facility] 4 17:19:58 8513004 cat dander environme nt Not available Not available Not available 04/03/2024 62211 UNK Khadijah [place] null, [place] - [facility] 4 17:20:02 9995310 mold extract environme nt Not available Not available Not available 04/03/2024 49079 8 RxNorm Khadijah [place] null, [place] - [facility] 4 17:20:07 1328203 grass pollen environme nt,medica tion Not available Not available Not available 04/03/2024 80080 UNK Khadijah [place] null, [place] - [facility] 4 17:20:12 5940432 weed pollen environme nt,medica tion Not available Not available Not available 04/03/2024 84302 UNK Khadijah [place] null, [place] - [facility] 4 17:20:16 Medications Name Sig Start Date Stop Date Status Note LastModified by Organization Details LastModified Time amoxicillin 500 mg capsule TAKE 1 CAPSULE BY MOUTH 3 TIMES A DAY FOR 7 DAYS 04/03 completed Not Available Not Available Not Available omeprazole 40 mg capsule,del ayed release Take 1 capsule every day by oral route for 90 days. 2023 active Not Available Not Available Not Avai lable Adderall XR 30 mg capsule,ext ended release TAKE 1 CAPSULE BY MOUTH EVERY DAY. (DNF UNTIL 01/16/24) 04/03 completed Not Available Not Available Not Available dicyclomine 20 mg tablet TAKE 1 TABLET BY MOUTH 3 TIMES DAILY NEEDED FOR ABDOMINAL PAIN. 04/03 completed Not Available Not Available Not Available Adderall XR 10 mg capsule,ext ended release PLEASE SEE ATTACHED FOR DETAILED DIRECTION S 04/03 completed Not Available Not Available Not Available montelukast 10 mg tablet TAKE 1 TABLET BY MOUTH EVERY DAY active Not Available Not Available No t Available ondansetron 4 mg disintegrat ing tablet DISSOLVE 1 TABLET BY MOUTH EVERY 6 TO 8 HOURS NEEDED FOR NAUSEA AND VOMITING. 04/03 completed Not Available Not Available Not Available ipratropium bromide 21 mcg (0.03 %) nasal spray INSTILL 2 SPRAYS BY INTRANASA L ROUTE TWICE DAILY. active Not Available Not Available No t Available fluticasone propionate 110 mcg/actuati on HFA aerosol inhaler INHALE 1 PUFF TWICE A DAY BY INHALATIO N ROUTE. 04/03 completed Not Available Not Available Not Available amoxicillin 875 mg-potassiu m clavulanate 125 mg tablet TAKE 1 TABLET BY MOUTH TWICE A DAY FOR 5 DAYS 04/03 completed Not Available Not Available Not Available Ventolin HFA 90 mcg/actuati on aerosol inhaler INHALE 2 PUFFS EVERY 4 HOURS BY INHALATIO N ROUTE NEEDED active Not Available Not Available No t Available Pulmicort Flexhaler 90 mcg/actuati on breath activated INHALE 1 PUFF BY MOUTH TWICE A DAY 04/03 completed Not Available Not Available Not Available levocetiriz ine 5 mg tablet TAKE 1 TABLET BY MOUTH EVERY DAY active Not Available Not Available No t Available Qvar RediHaler 80 mcg/actuati on HFA breath activated aerosol INHALE 2 PUFFS TWICE A DAY active Not Available Not Available No t Available Qelbree 200 mg capsule,ext ended release PLEASE SEE ATTACHED FOR DETAILED DIRECTION S active Not Available Not Available No t Available Paxlovid 300 mg (150 mg x 2)-100 mg tablets in a dose pack TAKE 3 TABLETS BY MOUTH TWICE A DAY FOR 5 DAYS 04/03 completed Not Available Not Available Not Available Vitals Date Recorded Pain severity - 0-10 verbal numeric rating [Score] - Reported Body height Body mass index (BMI) Body weight Body temperature Respiratory rate Oxygen saturation Oxygen saturation in Arterial blood by Pulse oximetry Heart rate Systolic blood pressure Diastolic blood pressure Provider Name and Address Organization Details Last Updated DateTime 4 5 165.1 cm 31.6 kg/m2 78146.5 5 g 98 [degF] 14 /min 97 % 97 % 82 /min 134 mm[Hg] 82 mm[Hg] Khadijah [place] - [facility] 4 17:25:03 Social History Question Answer Notes LastModified by Organizat ion Details LastModified Time Tobacco Smoking Status Never Smoker Khadijah [place] null, [place] - [facility] 04/03/2024 17:20:48 What Is Your Level Of Alcohol Consumption? None Information not available 04/03/2024 Have You Had A Flu Shot This Season? No Information not available 04/03/2024 If No, Would You Like A Flu Shot Today? No Information not available 04/03/2024 Do You Use Any Illicit Or Recreational Drugs? No Information not available 04/03/2024 Have You Recently Traveled Abroad? No Information not available 04/03/2024 Do You Or Have You Ever Used Any Other Forms Of Tobacco Or Nicotine? No Information not available 04/03/2024 Sex: Unknown Functional Status None recorded. Mental Status None recorded. Family History Relationship Description Onset Age of this Age Resolved Age Notes LastModified by Organization Details LastModified Time Father No current problems or disability Not available 04/03 17:20:36 Mother No current problems or disability Not available 04/03 17:20:36 Medical History No medical history recorded. Gynecological History Statement/Question Response Date of LMP 04/03/2024 Obstetrics History GPAL:G 0 P 0 0 0 0 Past Encounters Encounter ID Performer Location Encounter Start Date Encounter Closed Date Diagnosis/Indication Diagnosis SNOMED-CT Code Diagnosis ICD10 Code Diagnosis Note [id number] [facility]ellar [address] [place] [address] 04/03/2024 17:00:13 04/03/2024 17:40:33 Gastritis 6173759 K29.70 Based on you exam and presentati on I am diagnosing you with a gastritis Urine dip doesn't show anything that is overly concern at this point - however if you develop epigastric pain that doesn't let up and radiated between shoulder blades you need to go to the ER. Also if you develop a fever - another indication you need to go to the er - regardless of any discomfort . These are my recommenda tions to help with your symptoms and help you recover:1. Drink plenty of fluid and stay hydrated.2 . Try to eat foods like toast, chicken broth, bananas.3. Stay away from [facility], but you can drink pedialyte, soda, or water.4. Avoid Dairy or spicy foods5. Eat small Amounts6. Do not take any more of the pain medication s7. Don't hesitate to call with questions or concerns.8 . Do not take anymore Tums or Rolaids I would be seen again if you develop:1. Severe abdominal pain2. Vomiting more than 48 hours3. Fever > 101.04. Blood in Stool5. Blood in Urine. Thank you for using [facility] , please feel free to contact us if you have any questions or concerns. Health Concerns Section Related Observation LastModified by Organization Detai ls LastModified Time None Recorded Concern Status LastModified by Organization Details LastModified Time None Recorded Advance Directives Directive None Recorded Payers Encounter Date Sequence Insurance Name Policy Number Policy Harris Covered Member ID Harris Member ID Guarantor Name 04/03/2024 1 [facility] Nhi De [id number] Nhi De Notes Date Note Type Note Provider Name and Address Organization Details Recorded Time 04/03/2024 text/html 43 y/o female here with epigastric pain for the past week, worsening.No change in BM, no dysuria, no change with eating.Did drink a lot of drinking vinegar before this started, and has had a lot more acidic foods recently FIDENCIO Cuellar [address] [place], [address], [place] - [facility] 04/03/2024 17:51:51 OBGyn Episode No OBEpisode recorded.
[2024-09-12 22:03] VITALS: BP 134/79; PULSE 69; RESP 16; TEMP 37.1; O2SAT 99
[2024-09-12] MEDS: Doxycycline Monohydrate 100 MG CAPSULE 200 MG PO (22:03)
[2024-09-12 22:06] VITALS: BP 134/79; PULSE 69; RESP 16; TEMP 37.1; O2SAT 99
== END 2024-09-12 22:07 | disposition home or self-care (01) ==
PROVIDERS: Emergency Provider Internal Medicine; PCP Physician Assistant Medical
DX: T14.8XXA Other injury of unspecified body region, initial encounter (principal); W57.XXXA Bitten or stung by nonvenomous insect and other nonvenomous arthropods, initial encounter; Y93.9 Activity, unspecified; Y92.9 Unspecified place or not applicable; Y99.9 Unspecified external cause status
CPT/HCPCS: 99283; 99284

== ENCOUNTER → 2025-05-17 08:00 | Outpatient (BNV) | payer MEDICAID, SELFPAY | PROVIDERS: PCP Physician Assistant Medical; Visit Provider Internal Medicine | DX: Z12.31 Encounter for screening mammogram for malignant neoplasm of breast (principal) | CPT/HCPCS: 77063; 77067 ==

== ENCOUNTER 2025-05-17 08:04 | Outpatient (REF) | payer MEDICAID, SELFPAY ==
--- NOTE | ~2025-05-17 | MM_ITS ---
EXAMINATION: MM SCREENING DIGITAL BREAST TOMOSYNTHESIS, BILATERAL CLINICAL INFORMATION: Screening. Asymptomatic. COMPARISON: Mammography: Comparison is made with available priors TECHNIQUE: Digital breast mammography with tomosynthesis is performed in both the craniocaudal and mediolateral oblique views along with computer-aided detection (CAD). FINDINGS: There are scattered areas of fibroglandular density. There are no significant masses, abnormal calcifications, or other abnormalities. MM/MM tomosynthesis screening BI IMPRESSION: No mammographic evidence of malignancy. ASSESSMENT: BI-RADS Category 1: Negative RECOMMENDATION: Routine annual mammography screening. 1 year F/U This examination should not preclude the clinical evaluation of a suspicious palpable abnormality. This patient's information was entered into a reminder system with a target due date for their next mammogram. Electronically signed by: Yael Yap DO 05/18/2025 02:21 PM [facility]
--- OUTSIDE RECORDS SUMMARY | 2025-05-17 09:28 | XMS_ITS | Clinical Summary ---
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 01/26/2024 Active levocetirizine (XYZAL) 5 MG tablet Take 1 tablet (5 mg total) by mouth daily. Active montelukast (SINGULAIR) 10 MG tablet Take 1 tablet (10 mg total) by mouth daily. Active ipratropium (ATROVENT) 0.03 % nasal spray 2 sprays into each nostril 2 (two) times a day. Active albuterol (PROAIR RESPICLICK) 108 (90 Base) MCG/ACT inhaler Inhale 2 puffs every 4 (four) hours as needed for wheezing. Active Active Problems Problem Noted Date Diagnosed Date Intussusception 04/24/2024 Social History Tobacco Use Types Packs/Day Years Used Date Smoking Tobacco: Never Passive Smoke Exposure: Never Smokeless Tobacco: Never Tobacco Cessation:Counseling Given: No Comments:Counseling not applicable [facility] Utilities Answer Date Recorded In the past 12 months has th e electric, gas, oil, or water company threatened to shut off services in your home? No 04/25/2024 AUDIT-C Answer Date Recorded Q1: How often do you have a drink containing alc ohol? Monthly or less 04/26/2024 Q2: How many drinks containi ng alcohol do you have on a typical day when you are drinking? 1 or 2 04/26/2024 Q3: How often do you have si x or more drinks on one occasion? Never 04/26/2024 Hunger Vital Sign Answer Date Recorded Within the past 12 months, y ou worried that your food would run out before you got the money to buy more. Never true 04/25/20 24 Within the past 12 months, t he food you bought just didn't last and you didn't have money to get more. Never true 04/25/2024 PRAPARE - Transportation Answer Date Re corded In the past 12 months, has l ack of transportation kept you from medical appointments or from getting medications? No 12/2023 In the past 12 months, has l ack of transportation kept you from meetings, work, or from getting things needed for daily living? No 04/25/2024 Housing Stability Vital Sign Answer Maurice e Recorded In the last 12 months, was t here a time when you were not able to pay the mortgage or rent on time? No 04/25/2024 In the past 12 months, how m any times have you moved where you were living? 1 04/25/2024 At any time in the past 12 m [facility], were you homeless or living in a halfway (including now)? No 04/25/2024 Comments No Sex and Gender Information Value Date Recorded Sex Assigned at Female 04/24/2024 7:13 PM EST Legal Sex Female 3:54 PM EST Gender Identity Female 04/24/2024 7:13 PM EST Sexual Orientation Heterosexual (straight) 04/24 7:13 PM EST Last Filed Vital Signs Vital Sign Reading Time Taken Comments Blood Pressure 108/70 05/14/2024 1:34 PM EST Pulse 68 05/14/2024 1:34 PM EST Temperature 36.6 C (97.8 F) 05/14/2024 1:34 PM EST Respiratory Rate 18 04/28/2024 8:33 AM EST Oxygen Saturation 98% 05/14/2024 1:34 PM EST Inhaled Oxygen Concentration - - Weight 92.2 kg (203 lb 3.2 oz) 05/14/2024 1:34 P M EST Height 165.1 cm (5' 5 ) 05/14/2024 1:34 PM EST Body Mass Index 33.81 05/14/2024 1:34 PM EST Plan of Treatment Health Maintenance Due Date Last Done Comments Hepatitis C Virus Screening 1979 HIV Screening 09/02/1992 DTaP/Tdap/Td Vaccines (1 - Tdap) 09/02/1998 Hepatitis B Vaccines (1 of 3 - 19+ 3-dose series) 09/02/1998 Pap Smear (Ages 21-65) 09/02/2000 Mammogram 2019 Colonoscopy 09/02/2024 Influenza Vaccine 12/17/2024 04/23/2024 COVID-19 Vaccine (1 - 2024-2 6 season) 2025 HPV Vaccines (No Doses Required) Completed Pneumococcal Vaccine: Pediat jose c (0-5 Years) and At-Risk Patients (6 to 49 Years) Aged Out No longer eligible b ased on patient's age to complete this topic Insurance Advance Directives * Full Code (Latest Code Status on File) Date Activated Date Inactivated Comments 04/25/2024 7:30 PM * Full Code Date Activated Date Inactivated Comments 04/24/2024 10:22 PM 04/25/2024 7:30 PM
--- OUTSIDE RECORDS SUMMARY | 2025-05-17 09:28 | XMS_ITS ---
Author Name [facility] Organization Unknown Results Test Name/Text Value Interpretation Date Range Source Hgb Bld-mCnc 13.1 g/dL Normal 04/25/2024 11.7 - 15.7 [facility] T Hct VFr Bld Auto 40.1 % Normal 04/25/2024 35 - 47 HH CCT RBC num/area UrnS HPF 8.0 per hpf Above high normal 04/25/2024 0 - 4 [facility] WBC num/area UrnS HPF >25.0 per hpf Above high normal 04/25/2024 0 - 4 [facility] Squamous num/area UrnS HPF 18.0 PER HPF Normal 04/25/2024 [facility] pH Ur Strip 5.0 Normal 04/25/2024 5 - 8 [facility] Nitrite Ur Ql Strip Negative Normal 04/25/2024 - [facility]CT Bilirub Ur Strip-mCnc Negative Normal 04/25/2024 - [facility] Hgb Ur Ql Strip Small Abnormal 04/25/2024 - [facility] CT Prot Ur Strip-mCnc Small (30 mg/dL) Abnormal 04/25/2024 - [facility] Color Ur Yellow Normal 04/25/2024 H[facility] Sp Gr Ur Strip 1.031 Above high normal 04/25/2024 1.0 03 - 1.03 [facility] Glucose Ur Strip-mCnc 0.0 mg/dL Normal 04/25/2024 0 - 99 [facility] Clarity Ur Cloudy Normal 04/25/2024 [facility] Ketones Ur Strip-mCnc Large Abnormal 04/25/2024 - [facility] Leukocyte esterase Ur Ql Strip Moderate Abnormal 04/25/2024 - [facility] aPTT PPP 31.0 seconds Normal 04/25/2024 25 - 36 [facility] Anticoagulant SUBCUTANEOUS UNFRACTIONATED HEPARIN Normal 04/25/2024 H[facility]CT Prothrombin time 12.0 seconds Normal 04/25/2024 10 - 13.5 H[facility]CT INR PPP 1.0 Normal 04/25/2024 [facility] Anticoagulant SUB Q UNFRACTIONATED HEPARIN Normal 04/25/2024 [facility] BUN/Creat SerPl 16.0 Ratio Normal 04/25/2024 10 - 25 HH CCT Calcium SerPl-mCnc 8.9 mg/dL Normal 04/25/2024 8.7 - 10.5 [facility]CT Chloride SerPl-sCnc 105.0 mmol/L Normal 04/25/2024 98 - 1 07 H[facility]CT BUN SerPl-mCnc 11.0 mg/dL Normal 04/25/2024 8 - [address] CO2 SerPl-sCnc 17.0 mmol/L Below low normal 04/25/2024 22 - 33 H[facility]CT Potassium SerPl-sCnc 3.9 mmol/L Normal 04/25/2024 3.4 - 5.3 HHCCT GFR/BSA.pred SerPlBld [id number] >90.0 Normal 04/25/2024 59 - HHCCT Anion Gap Bld-sCnc 17.0 Normal 04/25/2024 7 - 17 [facility]CT Glucose SerPl-mCnc 76.0 mg/dL Normal 04/25/2024 65 - 99 H[facility]CT Creat SerPl-mCnc 0.7 mg/dL Normal 04/25/2024 0.4 - 1.1 HH CCT Sodium SerPl-sCnc 139.0 mmol/L Normal 04/25/2024 136 - 14 5 HHCCT Phosphate SerPl-mCnc 3.2 mg/dL Normal 04/25/2024 2.7 - 4.5 HHCCT Magnesium SerPl-mCnc 2.3 mg/dL Normal 04/25/2024 1.6 - 2.7 H[facility]CT RBC num Bld Auto 5.49 Mil/uL Above high normal 04/25/2024 4 - 5.4 HHCCT WBC num Bld Auto 8.4 Thou/uL Normal 04/25/2024 4 - 11 HHCCT Hct VFr Bld Auto 44.9 % Normal 04/25/2024 35 - 47 HH CCT MCHC RBC Auto-mCnc 32.5 g/dL Normal 04/25/2024 30 - 36 H[facility]CT MCH RBC Qn Auto 26.6 pg Normal 04/25/2024 26 - [address] Hgb Bld-mCnc 14.6 g/dL Normal 04/25/2024 11.7 - 15.7 [facility] T MCV RBC Auto 82.0 fL Normal 04/25/2024 80 - 100 [facility]CT PMV Bld Auto 11.6 fL Normal 04/25/2024 7.5 - 12.5 [facility]CT Platelet num Bld Auto 231.0 Thou/uL Normal 04/25/2024 150 - 450 H[facility]CT RDW RBC Auto-Rto 13.2 % Normal 04/25/2024 11.5 - 14.5 H[facility]CT RBC num/area UrnS HPF 3.0 per hpf Normal 04/25/2024 0 - 4 HHCCT WBC num/area UrnS HPF 14.0 per hpf Above high normal 04/25/2024 0 - 4 H[facility]CT Squamous num/area UrnS HPF 21.0 PER HPF Normal 04/25/2024 H[facility]CT Nitrite Ur Ql Strip Negative Normal 04/25/2024 - CCT Clarity Ur Slightly cloudy Normal 04/25/2024 HH CCT Sp Gr Ur Strip >1.05 Above high normal 04/25/2024 1.0 03 - 1.03 [facility]CT Hgb Ur Ql Strip Negative Normal 04/25/2024 - [facility] CT Color Ur Yellow Normal 04/25/2024 HHCCT Bilirub Ur Strip-mCnc Negative Normal 04/25/2024 - CCT Prot Ur Strip-mCnc Small (30 mg/dL) Abnormal 04/25/2024 - CCT Ketones Ur Strip-mCnc Large Abnormal 04/25/2024 - CCT Leukocyte esterase Ur Ql Strip Moderate [facility]normal [facility]2024 [facility] 5.0 Normal 04/25/2024 5 - 8 [facility]CT Glucose Ur Strip-mCnc 0.0 mg/dL Normal 04/25/2024 0 - 99 H[facility]CT Lactate SerPl-sCnc 0.9 mmol/L Normal 04/25/2024 0.5 - 1.9 H[facility]CT Lipase SerPl-cCnc 27.0 U/L Normal 04/25/2024 13 - 60 H HCCT Anion Gap Bld-sCnc 16.0 Normal 04/25/2024 7 - 17 H[facility]CT Sodium SerPl-sCnc 137.0 mmol/L Normal 04/25/2024 136 - 14 5 H[facility]CT Albumin/Glob SerPl 1.4 Ratio Normal 04/25/2024 1 - 3 [facility]CT Glucose SerPl-mCnc 78.0 mg/dL Normal 04/25/2024 65 - 99 H[facility]CT Globulin Ser Calc-mCnc 2.9 g/dL Normal 04/25/2024 1.5 - 3.9 HHCCT ALT SerPl-cCnc 15.0 U/L Normal 04/25/2024 10 - 50 HHCC T Creat SerPl-mCnc 0.7 mg/dL Normal 04/25/2024 0.4 - 1.1 HH CCT Chloride SerPl-sCnc 103.0 mmol/L Normal 04/25/2024 98 - 1 07 HHCCT Albumin SerPl-mCnc 4.2 g/dL Normal 04/25/2024 3.5 - 5 H[facility]CT Calcium SerPl-mCnc 9.0 mg/dL Normal 04/25/2024 8.7 - 10.5 HHCCT Bilirub SerPl-mCnc 0.5 mg/dL Normal 04/25/2024 0.2 - 1 HHCCT BUN SerPl-mCnc 10.0 mg/dL Normal 04/25/2024 8 - [address] Prot SerPl-mCnc 7.1 g/dL Normal 04/25/2024 6.3 - 8.[address] Potassium SerPl-sCnc 3.7 mmol/L Normal 04/25/2024 3.4 - 5.3 HHCCT CO2 SerPl-sCnc 18.0 mmol/L Below low normal 04/25/2024 22 - 33 HHCCT GFR/BSA.pred SerPlBld LOO-ENT-XmUIiu >90.0 Normal 04/25/2024 59 - HHCCT ALP SerPl-cCnc 65.0 U/L Normal 04/25/2024 32 - 122 [facility] T BUN/Creat SerPl 14.0 Ratio Normal 04/25/2024 10 - 25 HH CCT AST SerPl-cCnc 14.0 U/L Normal 04/25/2024 10 - 50 [facility] T Neutrophils num Bld Auto 6.92 Thou/uL Normal 04/25/2024 2 - 7.5 HHCCT MCH RBC Qn Auto 26.4 pg Normal 04/25/2024 26 - [address] WBC num Bld Auto 9.8 Thou/uL Normal 04/25/2024 4 - 11 H[facility]CT Eosinophil num Bld Auto 0.21 Thou/uL Normal 04/25/2024 0 - 0.7 HHCCT RDW RBC Auto-Rto 13.2 % Normal 04/25/2024 11.5 - 14.5 HHCCT MCV RBC Auto 81.0 fL Normal 04/25/2024 80 - 100 H[facility]CT Basophils num Bld Auto 0.04 Thou/uL Normal 04/25/2024 0 - 0.2 HHCCT Basophils/leuk NFr Bld Auto 0.4 % Normal 04/25/2024 HHCCT Lymphocytes/leuk NFr Bld Auto 18.5 % Normal 04/25/2024 H[facility]CT Eosinophil/leuk NFr Bld Auto 2.1 % Normal 04/25/2024 HHCCT PMV Bld Auto 11.2 fL Normal 04/25/2024 7.5 - 12.5 HHCCT Monocytes/leuk NFr Bld Auto 8.2 % Normal 04/25/2024 HHCCT Hct VFr Bld Auto 43.1 % Normal 04/25/2024 35 - 47 HH CCT Neutrophils/leuk NFr Bld Auto 70.5 % Normal 04/25/2024 HHCCT MCHC RBC Auto-mCnc 32.7 g/dL Normal 04/25/2024 30 - 36 HHCCT Platelet num Bld Auto 251.0 Thou/uL Normal 04/25/2024 150 - 450 HHCCT Hgb Bld-mCnc 14.1 g/dL Normal 04/25/2024 11.7 - 15.7 [facility] T Imm Granulocytes num Bld Auto 0.03 Thou/uL Normal 04/25/2024 0 - 0.1 H[facility]CT RBC num Bld Auto 5.34 Mil/uL Normal 04/25/2024 4 - 5.4 HHCCT Imm Granulocytes/leuk NFr Bld Auto 0.3 % Normal 04/25/2024 HHCCT Lymphocytes num Bld Auto 1.81 Thou/uL Normal 04/25/2024 1.5 - 4.5 CCT Monocytes num Bld Auto 0.8 Thou/uL Normal 04/25/2024 0[facility]2 - [facility].5 [facility] History of Medication Use Medication Directions Dispensed Refills Start Date End Date Stat us acetaminophen (TYLENOL) 325 MG tablet Take 3 tablets (975 mg total) by mouth every 6 (six) hours around the clock. 04/28/2024 05/14/2024 active gabapentin (NEURONTIN) 300 MG capsule Take 1 capsule (300 mg total) by mouth every 8 (eight) hours around the clock. 04/28/2024 05/14/2024 active HYDROmorphone (DILAUDID) 2 MG tablet Take 1 tablet (2 mg total) by mouth every 4 (four) hours as needed for severe pain. Max Daily Amount: 12 mg 04/28/2024 05/14/2024 active Qvar RediHaler 80 MCG/ACT Aerosol, Breath Activate inhaler Inhale 2 puffs (160 mcg total) 2 times a day. 01/26/2024 active budesonide (Pulmicort Flexhaler) 90 MCG/ACT inhaler Inhale 1 puff 2 (two) times a day. 05/14/2024 aborted OMEprazole (PriLOSEC) 40 MG capsule Take 1 capsule (40 mg total) by mouth every morning before breakfast. 05/14/2024 aborted albuterol (PROAIR RESPICLICK) 108 (90 Base) MCG/ACT inhaler Inhale 2 puffs every 4 (four) hours as needed for wheezing. active ipratropium (ATROVENT) 0.03 % nasal spray 2 sprays into each nostril 2 (two) times a day. active levocetirizine (XYZAL) 5 MG tablet Take 1 tablet (5 mg total) by mouth daily. active montelukast (SINGULAIR) 10 MG tablet Take 1 tablet (10 mg total) by mouth daily. active Allergies Allergen Reaction Severity Comment Documented Date Source Statu s [facility]25/2024 [facility] active Problems Problem Status Onset Date Problem Type Date of Resoluti on Source Intussusception active 2024-04-24 ProblemAct [facility] Encounters Encounter Type Encounter Reason Primary Diagnosis Location Date Ambulatory Intussusception Intussusception [facility] 05/14/2024 Inpatient Intussusception Intussusception [facility] 04/24/2024 Care Team Organization Name Specialty Phone Email Start Date End Da alyssia [facility] 04/27/2024 08/04/2024 [facility] 04/24/2024
--- OUTSIDE RECORDS SUMMARY | 2025-05-17 09:28 | XMS_ITS | Clinical Summary ---
Author Organization [facility] Address [address] [place] [id number] Phone Care Team Providers Care Legal File Clerk Name Role Phone Pcp, Unknown Primary Care Provider Marta Kiran MD Unavailable [phone] Family History Medical History Relation Comments CV disease Maternal Grandfather 2 Cancer Maternal Grandmother 2 Diabetes mellitus Maternal Grandmother 2 Diabetes mellitus Maternal Uncle 2 Cancer Paternal Grandmother 2 Cancer Paternal Uncle 2 Relation Status Comments Maternal Grandfather 1 Maternal Grandfather 2 Maternal Grandmother 1 Maternal Grandmother 2 Maternal Uncle 1 Maternal Uncle 2 Paternal Grandmother 1 Paternal Grandmother 2 Paternal Uncle 1 Paternal Uncle 2 Social History Tobacco Use Types Packs/Day Years Used Date Smoking Tobacco: Never Assessed Education Answer Date Recorded Are you interested in more education? Not on solomon e 09/13/2022 Are you concerned about learning? Not on file 09/13/2022 No 09/13/2022 No 09/13/2022 Digital Access Answer Date Recorded No 10/11/2022 No 10/11/2022 Reliable internet access at home? Not on file 10/11/2022 Device with a working camera? Not on file Comments Unknown Sex and Gender Information Value Date Recorded Sex Assigned at Female 01/28/2021 8:39 AM EDT Legal Sex Female 9:22 PM EDT Gender Identity Female 01/28/2021 8:39 AM EDT Sexual Orientation Straight 01/28/2021 8: 39 AM EDT Last Filed Vital Signs Vital Sign Reading Time Taken Comments Blood Pressure 122/82 03/13/2015 1:00 AM EDT Pulse 114 03/13/2015 1:00 AM EDT Temperature 36.8 C (98.2 F) 03/13/2015 1:00 AM EDT Respiratory Rate - - Oxygen Saturation - - Inhaled Oxygen Concentration - - Weight 89.1 kg (196 lb 6.4 oz) 03/13/2015 1:00 A M EDT Height 165.1 cm (5' 5 ) 03/13/2015 1:00 AM EDT Body Mass Index 32.68 03/13/2015 1:00 AM EDT Plan of Treatment Health Maintenance Due Date Last Done Comments DEPRESSION SCREENING 1991 SMOKING Hx and SMOKELESS TOBACCO SCREENING 09/02/1992 HEPATITIS C SCREENING 09/02/1997 HIV ONE-TIME SCREENING (18-65 YEARS) 09/02/1997 PAP SMEAR 09/02/2000 MAMMOGRAM 2019 Adult Td,Tdap Booster 10/28/2019 10/27/2009, 007 COLOGUARD 09/02/2024 COLONOSCOPY 09/02/2024 COLORECTAL CANCER SCREENING 09/02/2024 FIT TEST 09/02/2024 FOBT 09/02/2024 SIGMOIDOSCOPY 09/02/2024 VIRTUAL COLONOSCOPY 09/02/2024 INFLUENZA VACCINE (#1) 2024 0, 05/28/2019, 02/13/2015, Additional history exists COVID-19 VACCINE ( season) 2025 08/15/2020 LIPID PANEL 07/09/2028 07/09/2023, 07/09/2023 PNEUMOCOCCAL VACCINES (0-49 years) Aged Out 03/07/2006 No longer eligible based on patient's age to complete this topic HEPATITIS A VACCINES Aged Out No long er eligible based on patient's age to complete this topic HIB VACCINES Aged Out No longer eligi ble based on patient's age to complete this topic MENINGOCOCCAL VACCINES (ACWY) Aged Out No longer eligible based on patient's age to complete this topic MENINGOCOCCAL VACCINES (B) Aged Out N o longer eligible based on patient's age to complete this topic Medical Devices Not on [place] [address] [place] [address] PPO EPO BLUE [facility] PPO EPO BLUE [facility] PPO EPO BLUE [facility] PPO EPO PPO EPO PPO EPO PPO EPO PPO EPO PPO EPO Care Teams Legal File Clerk Relationship Specialty Start Date End Date Pcp, Unknown PCP - General 04/01/19 Marta Perry MD [address] [place] [phone] maria Insurance Assigned Provider 04/02/25 Additional Source Comments The information contained in this document represents components of the legal health record. It is not the complete legal health record.[facility]
== END 2025-05-17 08:05 ==
LOC: HO.MAMMO 08:04
PROVIDERS: PCP Physician Assistant Medical; Visit Provider Physician Assistant Medical
DX: Z12.31 Encounter for screening mammogram for malignant neoplasm of breast (principal)
CPT/HCPCS: 77063; 77067